=== PATIENT | female | born 1970 | race Caucasian/White ===

== ENCOUNTER 2020-12-02 18:14 | Emergency (ER) | payer OTHER ==
[2020-12-02 18:57] LABS: Urine Blood Negative (Negative); Urine Glucose Negative (Negative); Urine Protein Negative (Negative)
--- NOTE | 2020-12-02 19:50 | RAD REPORT ---
EXAM DESCRIPTION: RAD - Foot Right 3 View - 12/02/2020 7:17 pm CLINICAL HISTORY: DEFORMITY COMPARISON: Ankle Right 3 View dated 12/02/2020 FINDINGS: No acute fracture. No malalignment. No significant focal degenerative changes. IMPRESSION: No acute osseous abnormality involving the right foot. Reference dedicated ankle radiogr aph for additional information.
--- NOTE | 2020-12-02 19:52 | RAD REPORT ---
EXAM DESCRIPTION: RAD - Ankle Right 3 View - 12/02/2020 7:17 pm CLINICAL HISTORY: DEFORMITY COMPARISON: No comparisons FINDINGS: Trimalleolar fracture which is comminuted. There is a fracture involving both the distal t ibial metadiaphysis, the medial malleolus, and distal fibula. The ankle mortise is disrupted. IMPRESSION: Trimalleolar fracture with disruption of the ankle mortise.
[2020-12-02] MEDS ORDERED: CEFAZOLIN SODIUM 1 GM/VIAL ONE ×2 (20:03→20:06)
[2020-12-02] MEDS ORDERED: TETANUS & DIPHTHERIA TOX,ADULT 0.5 ML VIAL ONE (20:03)
[2020-12-02 20:05] LABS: Absolute Lymphocytes (CBC) 1.4 K/uL (0.7-4.9); Basophils % 0.6 % (0-1.3); Hematocrit 41.3 % (36.0-45.0); Lymphocytes % 27.1 % (15.3-44.8); MPV 8.1 fL (7.6-11.3); RBC Red Blood Cell Count 4.23 M/uL (3.86-4.86)
[2020-12-02] MEDS ORDERED: NA CHLORIDE 0.9% 100 ML ONE (20:06)
[2020-12-02 20:10] LABS: Protime INR 0.97
[2020-12-02 20:16] LABS: ALT/SGPT 36 U/L (12-78); AST/SGOT 29 U/L (15-37); Albumin 4.6 g/dL (3.4-5.0); Alkaline Phosphatase 108 U/L (45-117); BUN Blood Urea Nitrogen 10 mg/dL (7-18); Bicarbonate 27 mmol/L (21-32); Bilirubin Direct < 0.1 mg/dL (0-0.2); Bilirubin Total 0.3 mg/dL (0.2-1.0); Glucose Level 89 mg/dL (74-106); Potassium 3.7 mmol/L (3.5-5.1); Protein, Total 8.7 g/dL (6.4-8.2); Sodium Level 136 mmol/L (136-145)
--- NOTE | 2020-12-02 20:21 | ER ---
Nurse's Notes [facility] Name: Charlie Garcia Age: 50 yrs Sex: Female : 1970 Arrival Date: 12/02/2020 Time: 18:16 Bed 3 Private MD: Diagnosis: Fracture, Right Ankle Trimalleolar comminuted, possible open Presentation: 12/02 18:24 Chief complaint: Patient states: Slip and fall in wet parking lot 30 min [employer]. R ankle ll1 pain, swelling, deformity with skin disruption. R/O open FX. No head injury or LOC. No blood thinners. Coronavirus screen: Vaccine status: Patient reports receiving the 2nd dose of the covid vaccine. Client denies travel out of the [place] in the last 14 days. At this time, the client does not indicate any symptoms associated with coronavirus-19. Ebola Screen: Patient denies travel to an Ebola-affected area in the 21 days before illness onset. Initial Sepsis Screen: Does the patient meet any 2 criteria? No. Patient's initial sepsis screen is negative. Does the patient have a suspected source of infection? Yes: Bone or joint infection. Risk Assessment: Do you want to hurt yourself or someone else? Patient reports no desire to harm self or others. Onset of symptoms was December 02, 2020. 18:24 Method Of Arrival: EMS: [facility] ll1 18:24 Acuity: LU 3 ll1 20:55 Care prior to arrival: Splint applied. Splint applied. Medication(s) given: ketorlac 30 ms4 mg. Mechanism of Injury: Fall from standing position. Trauma event details: Injury occurred: December 02, 2020. Triage Assessment: 18:27 General: Appears uncomfortable, Behavior is calm, cooperative, appropriate for age. ll1 Pain: Complains of pain in R ankle Quality of pain is described as aching, Aggravated by increased activity. Musculoskeletal: Circulation, motion, and sensation intact. Capillary refill < 3 seconds, Swelling present in R ankle. Injury Description: Deformity. CREATIVE GURU: 18:27 LMP N/A - control method ll1 Trauma Activation: Physician: ED Physician; Name: harini; Notified At: ; Arrived At: Physician: General Surgeon; Name: ; Notified At: ; Arrived At: Physician: Radiology; Name: ; Notified At: ; Arrived At: Physician: Respiratory; Name: ; Notified At: ; Arrived At: Physician: Lab; Name: ; Notified At: ; Arrived At: Historical: - Allergies: 18:24 Codeine; ll1 - PMHx: 18:24 None; ll1 - PSHx: 18:24 section; knee sx; ll1 - Immunization history:: Client reports receiving the 2nd dose of the Covid vaccine. - Social history:: Smoking status: Patient denies any tobacco usage or history of. - Immunization history: Last tetanus immunization: - up to date. Screenin:26 Abuse screen: Denies threats or abuse. Nutritional screening: No deficits noted. ll1 Tuberculosis screening: No symptoms or risk factors identified. Fall Risk Fall in past 12 months (25 points). IV access (20 points). Ambulatory Aid- Crutches/Cane/Walker (15 pts). Gait- Impaired (20 pts.). Total Jiménez Fall Scale indicates High Risk Score (45 or more points). Fall prevention measures have been instituted. Side Rails Up X 2 Frequent Obs/Assessments Occuring As available patient and family educated on Fall Prevention Program and Strategies. Primary Survey: 20:47 NO uncontrolled hemorrhage observed. A: The patient is alert. Airway: patent, No ms4 supplemental oxygen in use on arrival. Breathing/Chest: Respiratory pattern: regular, Respiratory effort: spontaneous, unlabored, Breath sounds: clear, bilaterally. Chest inspection: symmetrical rise and fall of the chest. Circulation: Cardiac rhythm: sinus rhythm Heart tones present. Pulses: palpable right radial artery, right posterior tibial artery, right dorsalis pedis artery, left radial artery, left posterior tibial artery and left dorsalis pedis artery. Skin color: pink, Skin temperature: warm, dry. Disability Alert. Exposure/Environment:. Exposure/Environment: All clothing and personal items were removed. Forensic evidence collection is not deemed to be indicated at this time. Items placed in patient belonging bag. There is no evidence of uncontrolled external bleeding. Obvious injury(ies) are noted at this time: deformity to right ankle. abrasion to right ankle. A warming method has been applied: A warm blanket has been provided to the patient. Reassessment Airway Airway Patent Breathing/Chest Respiratory pattern Regular Circulation Heart rhythm Sinus rhythm Disability Alert. Secondary Survey: 20:49 HEENT: No deficits noted. Gastrointestinal: No deficits noted. : No deficits noted. ms4 Musculoskeletal: Circulation, motion, and sensation intact. Capillary refill Range of motion: limited in right ankle Bony deformity noted of right ankle Swelling present in right ankle Tenderness present in right ankle Reports pain in right ankle. Assessment: 18:49 Reassessment: No changes from previously documented assessment. Patient and/or family ll1 updated on plan of care and expected duration. Pain level reassessed. Patient is alert, oriented x 3, equal unlabored respirations, skin warm/dry/pink. 19:55 Reassessment: Patient appears in no apparent distress at this time. No changes from ms4 previously documented assessment. Patient and/or family updated on plan of care and expected duration. Pain level reassessed. Patient is alert, oriented x 3, equal unlabored respirations, skin warm/dry/pink. General: Appears in no apparent distress. Behavior is calm, cooperative, appropriate for age. Pain: Complains of pain in right ankle. Neuro: No deficits noted. Cardiovascular: No deficits noted. Respiratory: No deficits noted. Derm: Wound noted abrasion to right ankle. Musculoskeletal: Circulation, motion, and sensation intact. Capillary refill Bony deformity noted of right ankle Swelling present in right ankle Tenderness present in right ankle Reports pain in right ankle. 21:27 Reassessment: report given to [facility] patient transported to [address] 21:27 Reassessment: patient states she does not want any more pain medication at this time. ms4 Vital Signs: 18:24 BP 191 / 104; Pulse 79; Resp 16; Temp 97.9; Pulse Ox 100% ; ll1 18:24 Weight 61.69 kg; Height 5 ft. 8 in. (172.72 cm); Pain 6/10; ll1 18:49 BP 171 / 103; ll1 20:03 BP 175 / 119; Pulse 99; Resp 16; Pulse Ox 100% on R/A; Pain 6/10; ms4 20:39 BP 169 / 108; Pulse 89; Resp 16; Temp 98.1(O); Pulse Ox 100% on R/A; Pain 4/10; ms4 18:24 Body Mass Index 20.68 (61.69 kg, 172.72 cm) 1 Ariel Coma Score: 20:56 Eye Response: spontaneous(4). Verbal Response: oriented(5). Motor Response: obeys ms4 commands(6). Total: 15. Trauma Score (Adult): 20:52 Eye Response: spontaneous(1); Verbal Response: oriented(1); Motor Response: obeys ms4 commands(2); Systolic BP: > 89 mm Hg(4); Respiratory Rate: 10 to 29 per min(4); Ariel Score: 15; Trauma Score: 12 ED Course: 18:16 Patient arrived in ED. ds1 18:20 Patient has correct armband on for positive identification. Bed in low position. Call mh5 light in reach. Side rails up X2. Warm blanket given. monitor and storage bin tender on. Pulse ox on. NIBP on. 18:21 Maintain EMS IV. Dressing intact. Site clean \T\ dry. mh5 18:24 Kristen Wasserman RN is Primary Nurse. ll1 18:26 Triage completed. ll1 18:29 Maintain EMS IV. Gauge \T\ site: 20 G L hand. ll1 19:03 Wilber Dong MD is Attending Physician. mh7 19:16 Ankle Right 3 View XRAY In Process Unspecified. EDMS 19:16 Foot Right 3 View XRAY In Process Unspecified. EDMS 19:40 Basic Metabolic Panel Sent. ms4 19:53 Primary Nurse role handed off by Kristen Wasserman, HARSH tt3 19:59 Initiated transfer at [facility] with Susan Benitez. Stated she would make tt3 some calls and call back. 20:06 Susan Benitez called back with admin approval. The accepting physician is Dr. kaylene Mariscal. Dr. Mariscal accepted without consult. The pt is going to [facility] ER. Nurse to call report to . Face sheet and MOT to be faxed to per Susan's request. 20:15 IV discontinued, intact, bleeding controlled, No redness/swelling at site. ms4 20:23 Inserted saline lock: 20 gauge in right forearm, using aseptic technique. ms4 20:51 Orthoglass splint: Posterior short lleg splint applied on stirrup splint applied on oe right leg. 20:52 Dressings: non-adherent dressing x 1 right ankle 4X4s X 1; right ankle. ms4 20:52 No provider procedures requiring assistance completed. ms4 20:56 Splint/sling/ice applied as appropriate. Arm band placed on right wrist. ms4 20:56 Thermoregulation: warm blanket given to patient. ms4 20:57 Patient maintains SpO2 saturation greater than 95% on room air. ms4 Administered Medications: 19:32 CANCELLED (wrong order ): Ancef (cefazolin) 1 grams IVPB once [facility] 19:39 Drug: Tetanus-Diphtheria Toxoid Adult 0.5 ml {Machine Ii Coremaker: Fingerprint. Exp: ms4 06/23/2022. Lot #: [id number]. } Route: IM; Site: right deltoid; 19:40 Drug: Ancef (cefazolin) 2 grams Route: IVPB; Infused Over: 30 mins; Site: left hand; ms4 20:23 Drug: morphine 2 mg Route: IVP; Site: right forearm; ms4 20:23 Drug: Zofran (Ondansetron) 4 mg Route: IVP; Site: right forearm; ms4 Intake: 21:28 IV: 100ml; Total: 100ml. ms4 Output: 21:28 Urine: 300ml (Voided); Total: 300ml. ms4 Outcome: 20:21 ER care complete, transfer ordered by . [facility] 20:57 Patient's length of stay in the Emergency Department was greater than 2 hours. awaiting ms4 transferPatient's length of stay extended due to 21:28 Transferred by ground EMS to [facility], Transfer form completed. X-rays sent ms4 w/ patient. 21:28 Condition: stable 21:28 Instructed on follow up and referral plans. 21:31 Patient left the ED. ms4 Signatures: Dispatcher [employer] EDMS Francheska Parker dsIgnacio Perry Maria mh5 Kristen Wasserman RN RN ll1 Wilber Dnog MD MD 7 Raj Mckenzie 3 Jory Eden RN RN ms4 Corrections: (The following items were deleted from the chart) 20:24 20:24 IV discontinued, intact, bleeding controlled, No redness/swelling at site. ms4 ms4 20:25 20:23 CORONAVIRUS+MR.LAB.BRZ drawn and sent. ms4 EDMS
--- NOTE | 2020-12-02 20:22 | EDPHYS ---
Physician Documentation [facility] Name: Charlie Garcia Age: 50 yrs Sex: Female : 1970 Arrival Date: 12/02/2020 Time: 18:16 Bed 3 Private MD: ED Physician Wilber Dong HPI: 12/02 19:10 This 50 yrs old Female presents to ER via EMS with complaints of Fall Injury. 7 19:10 Details of fall: The patient fell from an upright position, while walking, and struck a mh7 concrete surface. 19:10 Onset: The symptoms/episode began/occurred just prior to arrival, today. Associated 7 injuries: The patient sustained Right ankle, abrasion, contusion, decreased range of motion, obvious fracture, swelling, Possible puncture wound. Severity of symptoms: At their worst the symptoms were moderate, earlier today, in the emergency department the symptoms are unchanged. [employer]PERIMENTAL BOX TESTER: 18:27 LMP N/A - control method ll1 Historical: - Allergies: 18:24 Codeine; ll1 - PMHx: 18:24 None; ll1 - PSHx: 18:24 section; knee sx; ll1 - Immunization history:: Client reports receiving the 2nd dose of the Covid vaccine. - Social history:: Smoking status: Patient denies any tobacco usage or history of. - Immunization history: Last tetanus immunization: - up to date. ROS: 19:10 Constitutional: Negative for fever, chills, and weight loss, Eyes: Negative for injury, mh7 pain, redness, and discharge, ENT: Negative for injury, pain, and discharge. 19:10 Neck: Negative for injury, pain, and swelling, Cardiovascular: Negative for chest pain, mh7 palpitations, and edema, Respiratory: Negative for shortness of breath, cough, wheezing, and pleuritic chest pain, Abdomen/GI: Negative for abdominal pain, nausea, vomiting, diarrhea, and constipation, Back: Negative for injury and pain, : Negative for injury, bleeding, discharge, and swelling, Neuro: Negative for headache, weakness, numbness, tingling, and seizure, Psych: Negative for depression, anxiety, suicide ideation, homicidal ideation, and hallucinations, Allergy/Immunology: Negative for hives, rash, and allergies, Endocrine: Negative for neck swelling, polydipsia, polyuria, polyphagia, and marked weight changes, Hematologic/Lymphatic: Negative for swollen nodes, abnormal bleeding, and unusual bruising. Exam: 19:10 Constitutional: This is a well developed, well nourished patient who is awake, alert, mh7 and in no acute distress. Head/Face: Normocephalic, atraumatic. Eyes: Pupils equal round and reactive to light, extra-ocular motions intact. Lids and lashes normal. Conjunctiva and sclera are non-icteric and not injected. Cornea within normal limits. Periorbital areas with no swelling, redness, or edema. Neck: Trachea midline, no thyromegaly or masses palpated, and no cervical lymphadenopathy. Supple, full range of motion without nuchal rigidity, or vertebral point tenderness. No Meningismus. Chest/axilla: Normal chest wall appearance and motion. Nontender with no deformity. No lesions are appreciated. Cardiovascular: Regular rate and rhythm with a normal S1 and S2. No gallops, murmurs, or rubs. Normal PMI, no JVD. No pulse deficits. Respiratory: Lungs have equal breath sounds bilaterally, clear to auscultation and percussion. No rales, rhonchi or wheezes noted. No increased work of breathing, no retractions or nasal flaring. Abdomen/GI: Soft, non-tender, with normal bowel sounds. No distension or tympany. No guarding or rebound. No evidence of tenderness throughout. Back: No spinal tenderness. No costovertebral tenderness. Full range of motion. 19:10 Neuro: Awake and alert, GCS 15, oriented to person, place, time, and situation. Cranial nerves II-XII grossly intact. Motor strength 5/5 in all extremities. Sensory grossly intact. Cerebellar exam normal. Normal gait. Psych: Awake, alert, with orientation to person, place and time. Behavior, mood, and affect are within normal limits. 19:10 Musculoskeletal/extremity: Extremities: noted in the Right ankle: abrasion, decreased ROM, puncture, swelling, tenderness, noted in the Right foot: abrasion, tenderness, ROM: limited active range of motion, in the Right ankle, limited passive range of motion, in the Right ankle, Circulation is intact in all extremities. Pulses: are normal with no appreciated deficits, Perfusion: the patient is normally perfused throughout, Perfusion: the extremity is normally perfused throughout, Calf tenderness, is absent, Edema, is not appreciated, Sensation intact. Compartment Syndrome exam of affected extremity: is normal. no numbness, no tingling, no sensation deficit, no palor, no weak pulses, Joints: the right ankle displays limited range of motion, painful range of motion, swelling, tenderness, Weight bearing: is unable to bear weight, Tendon exam: unable to examine due to patient being uncooperative. 19:10 Skin: injury, abrasion(s), small abrasion noted, of the Right medial ankle and right medial foot, puncture(s), of the Right medial ankle, Unable to determine depth of puncture which is approximately 1 to 2 mm in size. Vital Signs: 18:24 BP 191 / 104; Pulse 79; Resp 16; Temp 97.9; Pulse Ox 100% ; ll1 18:24 Weight 61.69 kg; Height 5 ft. 8 in. (172.72 cm); Pain 6/10; ll1 18:49 BP 171 / 103; ll1 20:03 BP 175 / 119; Pulse 99; Resp 16; Pulse Ox 100% on R/A; Pain 6/10; ms4 20:39 BP 169 / 108; Pulse 89; Resp 16; Temp 98.1(O); Pulse Ox 100% on R/A; Pain 4/10; ms4 18:24 Body Mass Index 20.68 (61.69 kg, 172.72 cm) ll1 Edwall Coma Score: 20:56 Eye Response: spontaneous(4). Verbal Response: oriented(5). Motor Response: obeys ms4 commands(6). Total: 15. Trauma Score (Adult): 20:52 Eye Response: spontaneous(1); Verbal Response: oriented(1); Motor Response: obeys ms4 commands(2); Systolic BP: > 89 mm Hg(4); Respiratory Rate: 10 to 29 per min(4); Edwall Score: 15; Trauma Score: 12 MDM: 20:15 Differential diagnosis: abrasion, contusion, fracture, laceration. Data reviewed: [facility] signs, nurses notes, EMS record, lab test result(s), CBC, electrolytes, radiologic studies, plain films. Data interpreted: Pulse oximetry: on room air is 100 %. Interpretation: normal. Counseling: I had a detailed discussion with the patient and/or guardian regarding: the historical points, exam findings, and any diagnostic results supporting the discharge/admit diagnosis, lab results, radiology results, the need to transfer to another facility, for higher level of care. Response to treatment: the patient's symptoms have mildly improved after treatment. Physician consultation: Fred Webber MD was contacted at 19:35, regarding patient's condition, after a discussion of the case, a recommendation for transfer for higher level of care is made. Refusal of service: The patient/guardian displays adequate decision making capability and despite a detailed discussion of alternatives, benefits, risks, and consequences refuses: Patient initially declined pain medication.. ED course: Discussed with Dr. Webber of orthopedics who recommended transferring patient to trauma center due to injury being too complex to care for here. Discussed with patient and she is agreeable with transfer.. 20:21 Patient medically screened. [facility] 12/02 18:57 Order name: Urine Dipstick-Ancillary; Complete Time: 19:13 [facility] 12/02 19:02 Order name: Urine --Ancillary (enter results); Complete Time: 19:46 tt3 12/02 19:15 Order name: Basic Metabolic Panel [facility] 12/02 19:15 Order name: CBC with Diff; Complete Time: 20:13 7 12/02 19:15 Order name: Type And Screen [facility] 12/02 19:15 Order name: LFT's [facility] 12/02 18:33 Order name: Ankle Right 3 View XRAY; Complete Time: 19:52 ma2 12/02 18:33 Order name: Foot Right 3 View XRAY; Complete Time: 19:52 ma2 12/02 19:15 Order name: Protime (+inr); Complete Time: 20:13 [facility] 12/02 19:15 Order name: Ptt, Activated; Complete Time: 20:13 7 12/02 19:15 Order name: Basic Metabolic Panel [facility] 12/02 20:33 Order name: COVID-19/FLU A+B/RSV [facility] 12/02 19:15 Order name: Labs collected and sent; Complete Time: 19:40 mh7 12/02 20:15 Order name: Dressing - Wound; Complete Time: 20:23 [facility] 12/02 20:15 Order name: Splint - Ankle: Orthoglass: Stirrup; Complete Time: 20:44 mh7 12/02 20:15 Order name: Splint - Ankle: Posterior; Complete Time: 20:44 mh7 Administered Medications: 19:32 CANCELLED (wrong order ): Ancef (cefazolin) 1 grams IVPB once 7 19:39 Drug: Tetanus-Diphtheria Toxoid Adult 0.5 ml {Yeast Maker: [place]. Exp: ms4 06/23/2022. Lot #: [id number]. } Route: IM; Site: right deltoid; 19:40 Drug: Ancef (cefazolin) 2 grams Route: IVPB; Infused Over: 30 mins; Site: left hand; ms4 20:23 Drug: morphine 2 mg Route: IVP; Site: right forearm; ms4 20:23 Drug: Zofran (Ondansetron) 4 mg Route: IVP; Site: right forearm; ms4 Disposition Summary: 12/02/20 20:21 Transfer Ordered Transfer Location: [place] [id number] Reason: Higher level of care [facility] Condition: Stable [facility] Problem: new [facility] Symptoms: have improved mh7 Accepting Physician: Dr. Mariscal(12/02/20 21:31) ms4 Diagnosis - Fracture, Right Ankle Trimalleolar comminuted, possible open [facility] Forms: - Medication Reconciliation Form 7 - SBAR form 7 Signatures: Dispatcher [employer] EDMS Kristen Wasserman RN RN ll1 Wilber Dong MD MD 7 Jory Eden RN RN ms4 Corrections: (The following items were deleted from the chart) 19:32 19:15 Ancef (cefazolin) 1 grams IVPB once ordered. [place] [id number] 20:06 20:02 Constitutional: Negative for fever, chills, and weight loss, Eyes: Negative for mh7 injury, pain, redness, and discharge, ENT: Negative for injury, pain, and discharge, Neck: Negative for injury, pain, and swelling, Cardiovascular: Negative for chest pain, palpitations, and edema, Respiratory: Negative for shortness of breath, cough, wheezing, and pleuritic chest pain, Abdomen/GI: Negative for abdominal pain, nausea, vomiting, diarrhea, and constipation, Back: Negative for injury and pain, : Negative for injury, bleeding, discharge, and swelling, Neuro: Negative for headache, weakness, numbness, tingling, and seizure, Psych: Negative for depression, anxiety, suicide ideation, homicidal ideation, and hallucinations, Allergy/Immunology: Negative for hives, rash, and allergies, Endocrine: Negative for neck swelling, polydipsia, polyuria, polyphagia, and marked weight changes, Hematologic/Lymphatic: Negative for swollen nodes, abnormal bleeding, and unusual bruising, [facility] : 19:10 Onset: The symptoms/episode began/occurred just prior to arrival, today, [place] [id number] : 20:02 Associated injuries: The patient sustained Right ankle, abrasion, contusion, [facility] decreased range of motion, swelling, Possible puncture wound, [facility] : 20:02 Severity of symptoms: At their worst the symptoms were moderate, earlier today, [facility] in the emergency department the symptoms are unchanged, [facility] : 20:02 Patient states that she was carrying some items outside in the rain while wearing [facility] sandals and slipped and fell injuring her right ankle. She denies any head trauma or LOC. Denies any headache, neck pain, chest pain, abdominal pain, shortness of breath, nausea, vomiting, dizziness, numbness/tingling, or weakness.. [facility] 20:25 20:03 CORONAVIRUS+MR.LAB.BRZ ordered. EDMS EDMS 20:33 20:25 SARS-COV-2 RT PCR ordered. EDMS EDMS 21:31 20:21 Dr. Mariscal [facility] ms4
[2020-12-02] MEDS ORDERED: ONDANSETRON 4 MG/2 ML VIAL ONE (20:32)
[2020-12-02] MEDS ORDERED: MORPHINE 2 MG/ML SYR ONE (20:32)
[2020-12-02 21:13] LABS: SARS-COV-2 RT PCR NEGATIVE (NEGATIVE)
[2020-12-02 21:49] VITALS: O2SAT 100
[2020-12-02 21:56] VITALS: BP 169/108; TEMP 98.1
== END 2020-12-02 21:31 | disposition short-term general hospital (02) ==
LOC: ER 18:14
DX: S82.851A Displaced trimalleolar fracture of right lower leg, initial encounter for closed fracture (principal); W01.0XXA Fall on same level from slipping, tripping and stumbling without subsequent striking against object, initial encounter; Y93.89 Activity, other specified; Y92.481 Parking lot as the place of occurrence of the external cause; Z20.822 Contact with and (suspected) exposure to COVID-19
CPT/HCPCS: 85025; 80048; 36415; 86900; 86850; 81025; 85610; 86901; 80076; 85730; 81003; 0241U; 73630; 73610; 90471; 90714; 99285; J2270; J2405; J0690 ×2